=== PATIENT | female | born 1975 | race Caucasian/White ===

== ENCOUNTER 2021-08-10 08:12 | Emergency (ER) | payer SELFPAY ==
[~2021-08-10] VITALS: Ht 165.1 cm; Wt 86.0 kg
[2021-08-10 08:26] VITALS: BP 144/72
[2021-08-10 09:44] LABS: BASOPHILS % 0.5 % (0.0-2.0); EOSINOPHILS % 2.6 % (0.0-5.0); HEMATOCRIT. 39.8 % (36.0-48.0); HEMOGLOBIN. 13.2 g/dL (12.0-16.0); LYMPHOCYTES % 35.9 % (20.0-50.0); MEAN CORPUSCULAR HEMOGLOBIN 29.1 pg (28.0-32.0); MEAN CORPUSCULAR VOLUME 87.7 fL (81.0-99.0); MONOCYTES % 6.3 % (2.0-8.0); NEUTROPHILS % 54.7 % (40.0-76.0); PLATELET 266 x1000/uL (130-400); RED BLOOD CELL COUNT 4.54 mill/uL (4.2-5.4); RED CELL DISTRIBUTION WIDTH 13.5 % (11.6-14.6)
[2021-08-10 09:57] LABS: CHLORIDE 107 mEq/L (98-107)
[2021-08-10 09:58] LABS: ETHANOL BLOOD < 10 mg/dL
[2021-08-10 10:03] LABS: HCG SCREEN NEGATIVE
== END 2021-08-10 22:42 | disposition home or self-care (01) ==
LOC: EDBD 08:12 → ER 08:12
DX: T50.995A Adverse effect of other drugs, medicaments and biological substances, initial encounter (principal); R51.9 Headache, unspecified; Y92.9 Unspecified place or not applicable
CPT/HCPCS: 36415; 80053; 80307; 80320; 80329; 84703; 85025; 99284; G0480